=== PATIENT | male | born 1980 | race Caucasian/White ===

== ENCOUNTER 2019-04-07 11:45 | Inpatient (IN) ==
[2019-04-07] MEDS ORDERED: 0.9 % Sodium Chloride 1,000 ML IVC ONE (12:52)
[2019-04-07] MEDS ORDERED: Acetaminophen 325 MG TABLET PO ONE (12:52)
[2019-04-07] MEDS ORDERED: Isovue-370 500 ML BOTTLE IVP ONE ×2 (12:53→16:17)
[2019-04-07] MEDS ORDERED: Orphenadrine 60 MG/2 ML VIAL IVP ONE (12:54)
[2019-04-07 13:40] LABS: Hematocrit 38.4 % (37.5-50.1); Hemoglobin 12.6 g/dL (12.9-16.9); Mean Corpuscular HGB Conc 32.8 g/dL (31.6-35.5); Mean Corpuscular Hemoglobin 31.3 pg (28.0-33.3); Mean Corpuscular Volume 95.5 fL (83.0-100.0); Mean Platelet Volume 9.6 fL (9.4-12.4); Platelet Count 239 K/mcL (140-400); Red Blood Count 4.02 M/mcL (4.19-5.50); Red Cell Distribution Width 13.3 % (11.5-14.5)
[2019-04-07 13:41] LABS: INR 1.3; Prothrombin Time 14.3 Seconds (9.4-12.1)
[2019-04-07 13:42] LABS: White Blood Count 32.9 K/mcL (4.3-11.1)
[2019-04-07 13:54] LABS: Bilirubin,Urine Small (Negative); Blood,Urine Negative (Negative); Clarity,Urine Clear (Clear); Color,Urine Dark Yellow (Yellow); Glucose,Urine (UA) 250 mg/dL (Normal); Ketones,Urine Negative (Negative); Leukocyte Esterase,Urine Negative (Negative); Nitrite,Urine Negative (Negative); Protein,Urine 100 mg/dL (Neg-Trace); Specific Gravity,Urine 1.028 (1.010-1.025)
[2019-04-07 13:58] LABS: Bacteria,Urine None Seen per hpf (None-Few); Hyaline Casts,Urine None Seen per lpf (None-Few); RBC,Urine 0-3 per hpf (0-3); Squamous Epithelial Cell,Urine Many per lpf (None-Few); WBC,Urine 0-3 per hpf (0-3)
[2019-04-07] MEDS ORDERED: Piperacillin/Tazobactam 3.375 GM in 0.9 % Sodium Chloride Mini Bag 100 ML IVPB ONE (13:58)
[2019-04-07] MEDS ORDERED: 0.9 % Sodium Chloride 1,000 ML IV ONE (13:59)
[2019-04-07 14:02] LABS: Platelet Estimate Normal (Normal)
[2019-04-07 14:03] LABS: Alanine Aminotransferase 15 Units/L (7-52); Albumin 3.3 g/dL (3.5-5.7); Albumin/Globulin Ratio 1.2 (1.1-2.2); Alkaline Phosphatase 93 Units/L (34-104); Aspartate Amino Transferase 13 Units/L (13-39); BUN/Creatinine Ratio 14 (6-26); Bilirubin,Direct 0.2 mg/dL (0.0-0.2); Bilirubin,Indirect 0.3 mg/dL (0.0-1.0); Bilirubin,Total 0.5 mg/dL (0.3-1.0); Blood Urea Nitrogen 9 mg/dL (6-20); Calcium 8.6 mg/dL (8.6-10.3); Carbon Dioxide 23 mEq/L (23-29); Chloride 99 mEq/L (98-107); Globulin 2.7 g/dL (2.4-3.5); Glucose 113 mg/dL (70-105); Osmolality,Calculated 267 (280-300); Potassium 4.1 mEq/L (3.5-5.1); Sodium 129 mEq/L (136-145); Troponin I < 0.03 ng/mL (< 0.04); eGFR For African Americans > 60 (> 60); eGFR For Non-African Americans > 60 (> 60)
[2019-04-07 14:05] LABS: Lymphocytes # 1.3 K/mcL (0.6-4.6); Monocytes # 2.6 K/mcL (0.0-1.3)
[2019-04-07 14:07] LABS: Toxic Granulation Present (Not Present)
[2019-04-07 14:47] LABS: Amphetamine Screen,Urine Negative ng/mL (Cutoff=1000); Barbiturate Screen,Urine Negative ng/mL (Cutoff=200); Benzodiazepines Screen,Urine Negative ng/mL (Cutoff=200); Cannabinoid Screen,Urine Positive ng/mL (Cutoff = 50); Cocaine Screen,Urine Negative ng/mL (Cutoff= 300); Opiate Screen,Urine Negative ng/mL (Cutoff=300); Phencyclidine Screen,Urine Negative ng/mL (Cutoff=25)
[2019-04-07] MEDS ORDERED: Naloxone 0.4 MG/ML INJ IVP PRN (16:15)
[2019-04-07 17:50] LABS: BUN/Creatinine Ratio 13 (6-26); Blood Urea Nitrogen 9 mg/dL (6-20); Calcium 7.9 mg/dL (8.6-10.3); Carbon Dioxide 21 mEq/L (23-29); Chloride 103 mEq/L (98-107); Glucose 216 mg/dL (70-105); Osmolality,Calculated 275 (280-300); Potassium 3.5 mEq/L (3.5-5.1); Sodium 130 mEq/L (136-145); eGFR For African Americans > 60 (> 60); eGFR For Non-African Americans > 60 (> 60)
[2019-04-07] MEDS ORDERED: D5% in Water 1,000 ML IVC PRN (17:55)
[2019-04-07] MEDS ORDERED: *HR* Dextrose 50 % in Water (Syg) 50 ML SYRINGE IVP PRN (17:55)
[2019-04-07] MEDS ORDERED: Dextrose Gel 15 GM/37.5 ML TUBE PO PRN ×2 (17:55)
[2019-04-07] MEDS: *HR* OxyCODONE Immed Rel 5 MG TABLET PO PRN (18:49)
[2019-04-07] MEDS: 0.9 % Sodium Chloride 1,000 ML IVC SCH (18:49)
[2019-04-07] MEDS: Insulin LISPRO 300 UNITS/3 ML VIAL SQ SCH ×2 (19:02→20:19)
[2019-04-07] MEDS: Nicotine 14 MG PATCH.TD24 TD SCH (21:49)
[2019-04-07] MEDS: *HR* Heparin 5,000 UNIT/ML VIAL SQ SCH (21:49)
[2019-04-07] MEDS: Piperacillin/Tazobactam 3.375 GM in 0.9 % Sodium Chloride Mini Bag 100 ML IVPB SCH (22:36)
[2019-04-08] MEDS: *HR* OxyCODONE Immed Rel 5 MG TABLET PO PRN ×2 (02:36→12:19)
[2019-04-08 02:46] LABS: Basophils % 0.2 %; Hemoglobin 11.4 g/dL (12.9-16.9)
[2019-04-08 02:47] LABS: Basophils # 0.1 K/mcL (0.0-0.2); Hematocrit 33.6 % (37.5-50.1); Immature Granulocytes % 3.8 % (0-4); Lymphocytes % 7.1 %; Mean Corpuscular HGB Conc 33.9 g/dL (31.6-35.5); Mean Corpuscular Hemoglobin 31.8 pg (28.0-33.3); Mean Corpuscular Volume 93.9 fL (83.0-100.0); Mean Platelet Volume 9.3 fL (9.4-12.4); Neutrophils # 22.9 K/mcL (1.6-8.9); Platelet Count 208 K/mcL (140-400); Red Blood Count 3.58 M/mcL (4.19-5.50); Red Cell Distribution Width 13.5 % (11.5-14.5); Segmented Neutrophils % 81.9 %
[2019-04-08 03:04] LABS: BUN/Creatinine Ratio 16 (6-26); Blood Urea Nitrogen 10 mg/dL (6-20); Calcium 8.1 mg/dL (8.6-10.3); Carbon Dioxide 20 mEq/L (23-29); Chloride 103 mEq/L (98-107); Glucose 109 mg/dL (70-105); Osmolality,Calculated 266 (280-300); Potassium 3.8 mEq/L (3.5-5.1); Sodium 128 mEq/L (136-145); eGFR For African Americans > 60 (> 60); eGFR For Non-African Americans > 60 (> 60)
[2019-04-08 03:39] LABS: Platelet Estimate Normal (Normal)
[2019-04-08] MEDS: *HR* Heparin 5,000 UNIT/ML VIAL SQ SCH ×3 (05:48→20:38)
[2019-04-08 06:28] LABS: Estimated Average Glucose 120 mg/dl
[2019-04-08] MEDS ORDERED: Acetaminophen 325 MG TABLET PO PRN (07:03)
[2019-04-08] MEDS: Piperacillin/Tazobactam 3.375 GM in 0.9 % Sodium Chloride Mini Bag 100 ML IVPB SCH ×2 (08:04→15:43)
[2019-04-08] MEDS: Nicotine 14 MG PATCH.TD24 TD SCH (08:04)
[2019-04-08] MEDS: Insulin LISPRO 300 UNITS/3 ML VIAL SQ SCH ×4 (08:06→20:39)
[2019-04-08] MEDS: Menthol 9.1 MG LOZENGE PO PRN ×3 (11:04→20:32)
[2019-04-08] MEDS: Ipratropium/Albuterol Neb 3 ML IH PRN ×2 (15:36→22:55)
[2019-04-08] MEDS: Ketorolac 30 MG/ML VIAL IVP PRN ×2 (15:42→22:36)
[2019-04-08] MEDS: 0.9 % Sodium Chloride 1,000 ML IVC SCH (19:17)
[2019-04-08] MEDS: Ondansetron 4 MG/2 ML VIAL IVP PRN (20:32)
[2019-04-09] MEDS: Piperacillin/Tazobactam 3.375 GM in 0.9 % Sodium Chloride Mini Bag 100 ML IVPB SCH ×2 (00:02→08:33)
[2019-04-09] MEDS: Menthol 9.1 MG LOZENGE PO PRN ×2 (00:50→04:30)
[2019-04-09] MEDS: Ondansetron 4 MG/2 ML VIAL IVP PRN (04:01)
[2019-04-09 05:31] LABS: Hematocrit 33.1 % (37.5-50.1); Hemoglobin 11.2 g/dL (12.9-16.9); Mean Corpuscular HGB Conc 33.8 g/dL (31.6-35.5); Mean Corpuscular Hemoglobin 32.1 pg (28.0-33.3); Mean Corpuscular Volume 94.8 fL (83.0-100.0); Mean Platelet Volume 9.6 fL (9.4-12.4); Platelet Count 218 K/mcL (140-400); Red Blood Count 3.49 M/mcL (4.19-5.50); Red Cell Distribution Width 13.8 % (11.5-14.5); White Blood Count 22.3 K/mcL (4.3-11.1)
[2019-04-09 05:51] LABS: BUN/Creatinine Ratio 19 (6-26); Blood Urea Nitrogen 11 mg/dL (6-20); Calcium 7.8 mg/dL (8.6-10.3); Carbon Dioxide 22 mEq/L (23-29); Chloride 104 mEq/L (98-107); Glucose 114 mg/dL (70-105); Osmolality,Calculated 274 (280-300); Potassium 3.4 mEq/L (3.5-5.1); Sodium 132 mEq/L (136-145); eGFR For African Americans > 60 (> 60); eGFR For Non-African Americans > 60 (> 60)
[2019-04-09 06:03] LABS: Lymphocytes # 1.3 K/mcL (0.6-4.6); Monocytes # 0.5 K/mcL (0.0-1.3); Neutrophils # 20.5 K/mcL (1.6-8.9); Toxic Granulation Present (Not Present)
[2019-04-09 06:04] LABS: Platelet Estimate Normal (Normal)
[2019-04-09] MEDS: *HR* Heparin 5,000 UNIT/ML VIAL SQ SCH ×2 (06:23→14:45)
[2019-04-09] MEDS: Insulin LISPRO 300 UNITS/3 ML VIAL SQ SCH ×2 (07:26→12:00)
[2019-04-09] MEDS: Nicotine 14 MG PATCH.TD24 TD SCH (08:32)
[2019-04-09 10:50] VITALS: BP 117/74
[2019-04-09] MEDS ORDERED: Nicotine 2 MG GUM BC PRN (14:04)
[2019-04-09] MEDS: Ipratropium/Albuterol Neb 3 ML IH PRN (15:07)
[2019-04-09] MEDS ORDERED: Aminoglycoside Consult 1 EACH MC ONE (16:13)
== END 2019-04-09 16:14 | disposition left against medical advice (07) ==
LOC: EMEROOARM 11:45 → 3ANU 11:45 → SUATTDRO 16:10 → 3ANU 16:37
PROVIDERS: ADMIT Internal Medicine; ATTEND Family Medicine